=== PATIENT | female | born 1970 | race American Indian/Alaskan Native ===

== ENCOUNTER 2017-01-26 21:50 | Emergency (ER) | payer MEDICAID ==
[2017-01-26 22:32] VITALS: TEMP 97.9; O2SAT 99; BMI 35.7
--- NOTE | 2017-01-26 23:32 | ED PDOC ---
Arrival/HPI - General Chief Complaint: Back Pain Time Seen by Provider: 01/26/17 22:22 Historian: Patient - History of Present Illness Narrative History of Present Illness (Text): 01/26/17 23:28 Aric Jordan is a 46 year old female who presents to the emergency department for evaluation of 2 year duration of intermittent right lower back pain radiating to the right buttock and down the leg, which worsened today. Reports that she is unable to move her leg and ambulate secondary to pain. Denies any recent history of trauma. Took Meloxicam today for minimal relief. Denies any numbness/tingling sensation to the extremities. Denies fever, chills, headache, chest pain, difficulty breathing, nausea, vomiting, diarrhea, urinary symptoms, or any other complaints at this time. Time/Duration: Other (chronic pain for 2 years worsening today ) Symptom Onset: Gradual Symptom Course: Worsening Severity Level: Mild Activities at Onset: Light Past Medical History - Provider Review Nursing Documentation Reviewed: Yes - Cardiac Hx Cardiac Disorders: Yes - Pulmonary Hx Respiratory Disorders: No - Neurological Hx Neurological Disorder: No - HEENT Hx HEENT Disorder: No - Renal Hx Renal Disorder: No - Endocrine/Metabolic Hx Endocrine Disorders: Yes Hx Diabetes Mellitus Type 2: Yes - Hematological/Oncological Hx Blood Disorders: No - Integumentary Hx Dermatological Disorder: No - Musculoskeletal/Rheumatological Hx Musculoskeletal Disorders: No - Gastrointestinal Hx Gastrointestinal Disorders: No - Genitourinary/Gynecological Hx Genitourinary Disorders: No - Psychiatric Hx Psychophysiologic Disorder: No Hx Substance Use: No - Anesthesia Hx Anesthesia: No Family/Social History - Physician Review Nursing Documentation Reviewed: Yes Family/Social History: No Known Family HX Smoking Status: Never Smoked Hx Alcohol Use: No Hx Substance Use: No Allergies/Home Meds Allergies/Adverse Reactions: Allergies No Known Allergies Allergy (Verified 01/26/17 22:34) Home Medications: Home Meds Medication Instructions Recorded Confirmed Atorvastatin [Lipitor] 10 mg PO DAILY 01/26/17 01/26/17 Meloxicam [Mobic] 15 mg PO DAILY 01/26/17 01/26/17 Review of Systems - Physician Review All systems were reviewed & negative as marked: Yes - Review of Systems Constitutional: Normal. absent: Fatigue, Fevers Respiratory: Normal. absent: SOB, Cough Musculoskeletal: Other (right lower back pain radiating to right leg. ) Neurological: Normal. absent: Headache, Dizziness Psychiatric: Normal Physical Exam Vital Signs Reviewed: Yes Vital Signs Temp Pulse Resp BP Pulse Ox 01/27/17 02:12 152/90 H 01/27/17 02:08 76 19 162/95 H 99 01/26/17 22:21 97.9 F 86 18 148/87 99 Temperature: Afebrile Blood Pressure: Normal Pulse: Regular Respiratory Rate: Normal Appearance: Positive for: Well-Appearing, Non-Toxic, Comfortable Pain Distress: None Mental Status: Positive for: Alert and Oriented X 3 - Systems Exam Head: Present: Atraumatic, Normocephalic Pupils: Present: PERRL Conjunctiva: Present: Normal Respiratory/Chest: Present: Clear to Auscultation, Good Air Exchange. No: Respiratory Distress, Accessory Muscle Use Cardiovascular: Present: Regular Rate and Rhythm, Normal S1, S2. No: Murmurs Back: Present: Pain with Leg Raise (+ pain with right leg raise ). No: CVA Tenderness, Midline Tenderness Upper Extremity: Present: Normal Inspection. No: Cyanosis, Edema Lower Extremity: Present: NORMAL PULSES, Neurovascularly Intact, Capillary Refill < 2 s, Other (reflex symmetrical. sensation intact. good strength ). No : Edema, CALF TENDERNESS, Tenderness, Swelling, Deformity Neurological: Present: GCS=15, CN II-XII Intact, Speech Normal Skin: Present: Warm, Dry, Normal Color. No: Rashes Psychiatric: Present: Alert, Oriented x 3, Normal Insight, Normal Concentration Medical Decision Making ED Course and Treatment: 01/26/17 23:36 Impression: A 46 year old female who presents to the emergency department complaining of 2 year duration of intermittent right lower back pain radiating down right leg. Reports that pain worsened today. Differential Diagnosis include but are not limited to: sciatica. Plan: -- Flexeril -- Toradol -- Reassess and disposition Progress Notes: 01/27/17 01:42 On reevaluation, patient states that pain had improved markedly and is able to ambulate with a steady gait. Patient is stable for discharge. Advised her to present to emergency department for worsening symptoms and follow up with PMD within few days. - Medication Orders Current Medication Orders: Discontinued Medications Cyclobenzaprine HCl (Flexeril) 10 mg PO STAT STA Stop: 01/26/17 23:15 Last Admin: 01/27/17 00:05 Dose: 10 MG Ketorolac Tromethamine (Toradol) 10 mg IVP STAT STA Stop: 01/26/17 23:15 Last Admin: 01/27/17 00:05 Dose: 10 MG IVP Administration Document 01/27/17 00:05 (Rec: 01/27/17 00:15 [facility] [id number] Charges for Administration # of IVP Administrations 1 - Scribe Statement The provider has reviewed the documentation as recorded by the Kurt Simmons Provider Attestation: All medical record entries made by the Kurt were at my direction and personally dictated by me. I have reviewed the chart and agree that the record accurately reflects my personal performance of the history, physical exam, medical decision making, and the department course for this patient. I have also personally directed, reviewed, and agree with the discharge instructions and disposition. Disposition/Present on Arrival - Present on Arrival Any Indicators Present on Arrival: No History of DVT/PE: No History of Uncontrolled Diabetes: No Urinary Catheter: No History of Decub. Ulcer: No History Surgical Site Infection Following: None - Disposition Have Diagnosis and Disposition been Completed?: Yes Diagnosis: Sciatica Disposition: HOME/ ROUTINE Disposition Time: 01:44 Condition: IMPROVED Discharge Instructions (ExitCare): Sciatica (ED) Additional Instructions: Please follow up with your doctor. Return to the ER for any worsening symptoms or for any other concerns. Prescriptions: Cyclobenzaprine [Cyclobenzaprine HCl] 10 mg PO TID PRN #20 tab PRN Reason: Pain, Severe (8-10) Naproxen [Naprosyn] 500 mg PO BID PRN #8 tablet PRN Reason: Pain, Moderate (4-7) Referrals: Michael Lackey MD [Primary Care Provider] - Follow up with primary
[2017-01-27 02:30] VITALS: PULSE 76; RESP 19
[2017-01-27 02:31] VITALS: BP 152/90
== END 2017-01-27 02:15 | disposition home or self-care (01) ==
LOC: ED 21:50
DX: M54.30 Sciatica, unspecified side (principal)
CPT/HCPCS: 96374; 99283; J1885

== ENCOUNTER 2018-11-26 23:55 | Emergency (ER) | payer OTHER ==
[2018-11-27 00:24] VITALS: RESP 18
--- NOTE | 2018-11-27 02:08 | ED PDOC ---
Arrival/HPI - General Chief Complaint: Back Pain Time Seen by Provider: 11/27/18 01:30 Historian: Patient - History of Present Illness Narrative History of Present Illness (Text): 11/27/18 02:02 48 year old female, whose past medical history includes chronic back pain, presents to the emergency department complaining of lower back discomfort. Patient states pain radiates down to the buttock and right thigh. Patient is able to ambulate without difficulty. Patient denies any trauma to the area. Patient denies any fever, chills, urinary or bowl changes, abdominal pain, nausea, vomiting, diarrhea, or any other complaints. Time/Duration: Prior to Arrival Symptom Onset: Gradual Symptom Course: Unchanged Quality: Dullness Activities at Onset: Light Context: Home Past Medical History - Provider Review Nursing Documentation Reviewed: Yes - Reproductive Currently : No - Musculoskeletal/Rheumatological Hx Back Pain: Yes (chronic back problems) - Psychiatric Hx Substance Use: No Family/Social History - Physician Review Nursing Documentation Reviewed: Yes Family/Social History: No Known Family HX Smoking Status: Never Smoked Hx Alcohol Use: No Hx Substance Use: No Allergies/Home Meds Allergies/Adverse Reactions: Allergies No Known Allergies Allergy (Verified 11/27/18 00:24) Review of Systems - Physician Review All systems were reviewed & negative as marked: Yes - Review of Systems Constitutional: absent: Fevers, Night Sweats Gastrointestinal: absent: Abdominal Pain, Diarrhea, Nausea, Vomiting Genitourinary Female: Normal. absent: Urine Output Changes Musculoskeletal: Back Pain Physical Exam Vital Signs Reviewed: Yes Vital Signs Temp Pulse Resp BP Pulse Ox 11/27/18 00:21 98.5 F 72 18 124/88 100 Temperature: Afebrile Blood Pressure: Normal Pulse: Regular Respiratory Rate: Normal Appearance: Positive for: Well-Appearing, Non-Toxic, Comfortable Pain Distress: None Mental Status: Positive for: Alert and Oriented X 3 - Systems Exam Head: Present: Atraumatic, Normocephalic Pupils: Present: PERRL Extroacular Muscles: Present: EOMI Conjunctiva: Present: Normal Mouth: Present: Moist Mucous Membranes Neck: Present: Normal Range of Motion Respiratory/Chest: Present: Clear to Auscultation, Good Air Exchange. No: Respiratory Distress, Accessory Muscle Use Cardiovascular: Present: Regular Rate and Rhythm, Normal S1, S2. No: Murmurs Abdomen: No: Tenderness, Distention, Peritoneal Signs Back: Present: CVA Tenderness (Some tenderness over the sciatic notch), Paraspinal Tenderness (Some minimal discomfort to the right paralumbar area). No: Midline Tenderness (No dorsal spinal tenderness) Upper Extremity: Present: Normal Inspection, Normal ROM, Neurovascularly Intact. No: Cyanosis, Edema Lower Extremity: Present: Normal Inspection, Normal ROM, Neurovascularly Intact. No: Edema Neurological: Present: GCS=15, CN II-XII Intact, Speech Normal, Motor Func Grossly Intact, Normal Sensory Function Skin: Present: Warm, Dry, Normal Color. No: Rashes Psychiatric: Present: Alert, Oriented x 3, Normal Insight, Normal Concentration Medical Decision Making ED Course and Treatment: 11/27/18 02:08 Impression: 48 year old female presents with lower back and right leg pain Plan: -- Flexeril -- Toradol -- Reassess and disposition Prior Visits: Notes and results from previous visits were reviewed Progress Notes: - Medication Orders Current Medication Orders: Discontinued Medications Cyclobenzaprine HCl (Flexeril) 10 mg PO ONCE ONE Stop: 11/27/18 01:55 Ketorolac Tromethamine (Toradol) 60 mg IM ONCE ONE Stop: 11/27/18 01:55 - Scribe Statement The provider has reviewed the documentation as recorded by the Kurt Zamora Provider Scribe Attestation: All medical record entries made by the Scribe were at my direction and personally dictated by me. I have reviewed the chart and agree that the record a ccurately reflects my personal performance of the history, physical exam, medical decision making, and the department course for this patient. I have also personally directed, reviewed, and agree with the discharge instructions and disposition. Disposition/Present on Arrival - Present on Arrival Any Indicators Present on Arrival: No History of DVT/PE: No History of Uncontrolled Diabetes: No Urinary Catheter: No History of Decub. Ulcer: No History Surgical Site Infection Following: None - Disposition Have Diagnosis and Disposition been Completed?: Yes Diagnosis: Sciatica Disposition: HOME/ ROUTINE Disposition Time: 05:51 Patient Plan: Discharge Condition: GOOD Discharge Instructions (ExitCare): Sciatica (DC) Additional Instructions: Take meds as prescribed/avoid prolonged sitting or bending/follow up with your doctor this week Prescriptions: Cyclobenzaprine [Cyclobenzaprine HCl] 10 mg PO TID PRN #15 tab PRN Reason: Muscle Spasm Naproxen [Naprosyn] 500 mg PO BID PRN #14 tab PRN Reason: Pain Referrals: Michael Lackey MD [Primary Care Provider] - Follow up with primary Forms: [employer] ([place]ien)
[2018-11-27 06:23] VITALS: BP 120/78; PULSE 78; TEMP 98.2; O2SAT 100
== END 2018-11-27 06:23 | disposition home or self-care (01) ==
LOC: MERGE 23:55 → ED 23:55
DX: M54.30 Sciatica, unspecified side (principal)
CPT/HCPCS: 96372; 99283; J1885